=== PATIENT | female | born 1995 | race Caucasian/White ===

== ENCOUNTER 2017-09-22 00:49 | Emergency (ER) | payer BC ==
[~2017-09-22] VITALS: Ht 160 cm; Wt 68.4 kg
[2017-09-22 00:54] VITALS: TEMP 37.5; Ht 160 cm; Wt 68.4 kg
[2017-09-22] MEDS ORDERED: ALUMINUM/MAGNESIUM SUSP 30 ML UDC PO STA (01:09)
[2017-09-22] MEDS ORDERED: LIDOCAINE HCL 2% VISC SOLN 20 ML UDC PO STA (01:09)
[2017-09-22 01:39] LABS: BASO % 0.3 %; BASO ABS # 0.03 K/uL (0-0.2); EOS % 0.2 %; EOS ABS # 0.02 K/uL (0-0.5); HEMATOCRIT 37.5 % (37-47); HEMOGLOBIN 12.4 g/dL (12.0-16.0); IG# 0.02 K/uL (0.00-0.02); LYMPH % 17.7 %; LYMPH ABS # 1.76 K/uL (1.2-3.4); MEAN CELL VOLUME 90.4 fL (80-100); MEAN CORPUSCULAR HEMOGLOBIN 29.9 pg (25-34); MEAN CORPUSCULAR HGB CONC 33.1 g/dl (32-36); MEAN PLATELET VOLUME 10.5 fL (7.4-10.4); MONO % 5.3 %; MONO ABS # 0.53 K/uL (0.11-0.59); NEUT % 76.3 %; NEUT ABS # 7.56 K/uL (1.4-6.5); PLATELET COUNT 308 K/uL (130-400); RED CELL DISTRIBUTION WIDTH SD 43.1 fL (36.4-46.3); WHITE BLOOD COUNT 9.92 K/uL (4.8-10.8)
[2017-09-22 01:59] LABS: ALBUMIN 3.8 gm/dl (3.4-5.0); ALT/SGPT 18 U/L (12-78); AST/SGOT 11 U/L (15-37); BLOOD UREA NITROGEN 8 mg/dl (7-18); CALCIUM 9.5 mg/dl (8.5-10.1); CARBON DIOXIDE 27 mmol/L (21-32); CREATININE 0.76 mg/dl (0.60-1.20); GLUCOSE 111 mg/dl (70-99); LIPASE 154 U/L (73-393); POTASSIUM 3.5 mmol/L (3.5-5.1); SODIUM 136 mmol/L (136-145)
[2017-09-22 02:02] LABS: ALKALINE PHOSPHATASE 47 U/L (45-117); TOTAL PROTEIN 8.3 gm/dl (6.4-8.2)
[2017-09-22] MEDS ORDERED: PANTOprazole SOD 40 MG TAB PO STA (02:50)
--- NOTE | 2017-09-22 02:50 | EMERGENCY ROOM VISIT NOTE ---
History First contact with patient: 00:59 Chief Complaint: ABDOMINAL PAIN Stated Complaint: STOMACH PAINS,BELCHING,VOMITING Nursing Triage Summary: pt c/o abd pain that increased tonight and she became nasueated and then vomited. History of Present Illness The patient is a 22 year old female who presents to the Emergency Room with complaints of epigastric discomfort for the past 3 weeks that comes and goes in severity with nausea. Patient saw her family care doctor back home and was started on Prilosec 20 mg. This has not helped much. She describes the pain as discomfort, 5 out of 10. Nothing makes it better or worse. Patient denies chest pain, dyspnea, fever, chills, back pain, urinary symptoms. She does not drink alcohol. No food seems to change her symptoms. Review of Systems See HPI for pertinent positives & negatives. A total of 10 systems reviewed and were otherwise negative. Past Medical/Surgical History Iron deficiency anemia, wisdom teeth extraction Social History Smoking Status: Never Smoker Smokeless Tobacco Use: No Alcohol Use: none Drug Use: none Marital Status: single Housing Status: lives with roommate Occupation Status: [employer] student Physical Exam Vital Signs Date Time Temp Pulse Resp B/P (MAP) Pulse Ox O2 Delivery O2 Flow Rate FiO2 09/22/17 00:54 37.5 114 18 120/75 99 Room Air Physical Exam VITALS: Vitals are noted on the nurse's note and reviewed by myself. Vital signs stable. GENERAL: Pleasant female, in no acute distress, nondiaphoretic, well-developed well-nourished. SKIN: The skin was without rashes, erythema, edema, or bruising. There is no tenting of the skin. Capillary reflex less than 2 seconds. HEAD: Normocephalic atraumatic. EARS: External auditory canals clear, tympanic membranes pearly [place] without erythema or effusion bilaterally. EYES: Pupils equal round and reactive to light and accommodation. Conjunctivae without injection, sclerae without icterus. Extraocular movements intact. NOSE: Patent, turbinates without inflammation or discharge. MOUTH: Mucous membranes moist. . Pharynx without erythema or exudate. Uvula midline. Airway patent. Tongue does not deviate. NECK: Supple without nuchal rigidity. No lymphadenopathy. No thyromegaly. Cervical spine is nontender. No JVD. HEART: Regular rate and rhythm without murmurs gallops or rubs. LUNGS: Clear to auscultation bilaterally without wheezes, rales or rhonchi. No dullness to percussion. No retractions or accessory muscle use. ABDOMEN: Positive bowel sounds x 4. Normal tympanic percussion. Soft, tender to palpation epigastric region, no CVA tenderness, without masses or organomegaly. Mcclure sign negative. No guarding or rebound tenderness. MUSCULOSKELETAL: No muscle atrophy, erythema, or edema noted. NEURO: Patient was alert and oriented to person place and time. Normal sensation to light and sharp touch. No focal neurological deficits. Medical Decision & Procedures Laboratory Results 09/22/17 01:20 Red Blood Count 4.15, Mean Corpuscular Volume 90.4, Mean Corpuscular Hemoglobin 29.9, Mean Corpuscular Hemoglobin Concent 33.1, Mean Platelet Volume 10.5, Neutrophils (%) (Auto) 76.3, Lymphocytes (%) (Auto) 17.7, Monocytes (%) (Auto) 5.3, Eosinophils (%) (Auto) 0.2, Basophils (%) (Auto) 0.3, Neutrophils # (Auto) 7.56, Lymphocytes # (Auto) 1.76, Monocytes # (Auto) 0.53, Eosinophils # (Auto) 0.02, Basophils # (Auto) 0.03 09/22/17 01:20 Test 09/22/17 00:00 09/22/17 01:20 Urine Color YELLOW Urine Appearance CLOUDY (CLEAR) Urine pH 6.0 (4.5-7.5) Urine Specific [place] 1.025 (1.000-1.030) Urine Protein NEG (NEG) Urine Glucose (UA) NEG (NEG) Urine Ketones TRACE (NEG) Urine Occult Blood NEG (NEG) Urine Nitrite NEG (NEG) Urine Bilirubin NEG (NEG) Urine Urobilinogen NEG (NEG) Urine Leukocyte Esterase TRACE (NEG) Urine WBC (Auto) >30 /hpf (0-5) Urine RBC (Auto) 0-4 /hpf (0-4) Urine Hyaline Casts (Auto) 1-5 /lpf (0-5) Urine Epithelial Cells (Auto) >30 /lpf (0-5) Urine Bacteria (Auto) 3+ (NEG) Urine Pathogenic Casts /lpf (0) White Blood Count 9.92 K/uL (4.8-10.8) Red Blood Count 4.15 M/uL (4.2-5.4) Hemoglobin 12.4 g/dL (12.0-16.0) Hematocrit 37.5 % (37-47) Mean Corpuscular Volume 90.4 fL (80-100) Mean Corpuscular Hemoglobin 29.9 pg (25-34) Mean Corpuscular Hemoglobin Concent 33.1 g/dl (32-36) Platelet Count 308 K/uL (130-400) Mean Platelet Volume 10.5 fL (7.4-10.4) Neutrophils (%) (Auto) 76.3 % Lymphocytes (%) (Auto) 17.7 % Monocytes (%) (Auto) 5.3 % Eosinophils (%) (Auto) 0.2 % Basophils (%) (Auto) 0.3 % Neutrophils # (Auto) 7.56 K/uL (1.4-6.5) Lymphocytes # (Auto) 1.76 K/uL (1.2-3.4) Monocytes # (Auto) 0.53 K/uL (0.11-0.59) Eosinophils # (Auto) 0.02 K/uL (0-0.5) Basophils # (Auto) 0.03 K/uL (0-0.2) RDW Standard Deviation 43.1 fL (36.4-46.3) RDW Coefficient of Variation 13.0 % (11.5-14.5) Immature Granulocyte % (Auto) 0.2 % Immature Granulocyte # (Auto) 0.02 K/uL (0.00-0.02) Anion Gap 8.0 mmol/L (3-11) Est Creatinine Clear Calc Drug Dose 109.6 ml/min Estimated GFR () 130.9 Estimated GFR (Non- 112.9 BUN/Creatinine Ratio 10.9 (10-20) Calcium Level 9.5 mg/dl (8.5-10.1) Total Bilirubin 0.3 mg/dl (0.2-1) Direct Bilirubin < 0.1 mg/dl (0-0.2) Aspartate Amino Transf (AST/SGOT) 11 U/L (15-37) Alanine Aminotransferase (ALT/SGPT) 18 U/L (12-78) Alkaline Phosphatase 47 U/L (45-117) Total Protein 8.3 gm/dl (6.4-8.2) Albumin 3.8 gm/dl (3.4-5.0) Lipase 154 U/L (73-393) Human Chorionic Gonadotropin, Qual NEG (NEG) Medications Administered Medications (Trade) Dose Ordered Sig/Melvin Route Start Time Stop Time Status Last Admin Dose Admin Lidocaine HCl (Viscous Lidocaine 2% Soln) 10 ml NOW STAT PO 09/22/17 01:09 09/22/17 01:11 DC 09/22/17 01:13 10 ML Al Hydroxide/Mg Hydroxide (Maalox Susp) 30 ml NOW STAT PO 09/22/17 01:09 09/22/17 01:11 DC 09/22/17 01:13 30 ML ED Course Prior records/ancillary studies reviewed. Triage Nursing notes reviewed. Additional history obtained from friends. The patient's history was concerning for abdominal pain. Differential diagnosis: Etiologies such as appendicitis, diverticulitis, PUD, biliary pathology, UTI, pancreatitis, obstruction, mesenteric ischemia, aortic pathology, infections, inflammatory bowel disease, renal colic, as well as others were entertained. Physical examination findings: As above. ER treatment provided: GI cocktail On reassessment the patient felt better. Diagnostics interpreted by me: The labs revealed neg hcg. Urinalysis seems consistent with contamination No leukocytosis. Stable H&H Imaging studies: US RUQ: No sonographic evidence of cholelithiasis or acute cholecystitis. No biliary dilatation. No hydronephrosis of the right kidney. Echogenic liver parenchyma suggesting steatosis. Radiologist: Mackenzie Elizondo M.D. Exam and history seem consistent with epigastric discomfort that most likely is is from gastritis. Patient was advised to increase her Prilosec to 40 mg a day and to follow GI for her ongoing symptoms. She is advised to eat small meals throughout the day and to take Maalox or Zantac for breakthrough symptoms. She is advised to return to the ER immediately for severe pain, fevers, vomiting, black or blood in her stool, worsening signs or symptoms or as needed. Patient did not have acute abdomen on exam. She had no blood or black in her stool. She was well-appearing. She felt better after being medicated as above.By the evaluation outlined above emergent etiologies such as appendicitis, diverticulitis, PUD, biliary pathology, UTI, pancreatitis, obstruction, mesenteric ischemia, aortic pathology, infections, inflammatory bowel disease, renal colic, as well as others were deemed relatively unlikely. The pt informed about the findings as listed above. All questions were answered and pleased with the treatment. Return instructions were outlined and the patient was discharged in stable condition. Outpatient prescription management: Protonix 40 mg Referral: The patient was referred to health services and/or GI for follow-up in 2 to 3 days for a recheck of the current condition. Case reviewed with my attending Medical Decision As above Medication Reconcilliation Current Medication List: was personally reviewed by me Blood Pressure Screening Patient's blood pressure: Normal blood pressure Impression Primary Impression: Epigastric abdominal pain Departure Information Dispostion Home / Self-Care Condition GOOD Referrals [facility] (PCP) Patient Instructions My [facility] Additional Instructions Protonix 40 m tablet daily for next 2 weeks. Take this on an empty stomach. Try Maalox or Zantac for breakthrough symptoms for reflux. Avoid large meals. Avoid acidic foods. Rest and drink plenty of fluids as tolerated. Continue current medications. Avoid strenuous activities and anything that worsens your pain. Resume normal activities once your symptoms resolve. Return to the ER immediately for worsening or persistent chest pain, abdominal pain, black or blood in your stools, vomiting, fevers, chest pains, difficulty breathing, worsening of your condition, or as needed. Follow up with your primary physician or GI in 2-3 days for a recheck of your current condition.
[2017-09-22] MEDS ORDERED: PANT40TA PO (02:51)
[2017-09-22 03:17] VITALS: BP 110/72; PULSE 97; O2SAT 98
--- NOTE | 2017-09-22 07:12 | DIAGNOSTIC IMAGING REPORT ---
ABDOMINAL ULTRASOUND, RIGHT UPPER QUADRANT HISTORY: Epigastric pain.. COMPARISON: None. FINDINGS: Pancreas: The pancreas demonstrates a normal echotexture. Liver: Unremarkable. Gallbladder: No gallbladder wall thickening. No gallstones. CBD: 4 mm. Right kidney: No hydronephrosis. IMPRESSION: No significant abnormality identified within the right upper quadrant. Electronically signed by: Issa Goyal M.D. 09/22/2017 7:11 AM Dictated Date/Time: 09/22/2017 7:10 AM
== END 2017-09-22 03:28 | disposition home or self-care (01) ==
LOC: C.EDB 00:50
DX: R10.13 Epigastric pain (principal); R11.0 Nausea

== ENCOUNTER → 2017-10-21 | Outpatient (CLI) | payer BC ==
[~2017-10-21] MED LIST: SINCALIDE IV ONE; SODIUM CHLORIDE 0.9% IV ONE
--- NOTE | 2017-10-21 13:31 | DIAGNOSTIC IMAGING REPORT ---
NUCLEAR MEDICINE HEPATOBILIARY SCAN WITH EJECTION FRACTION HISTORY: VOMITING, generalized ABDOMINAL PAIN , NAUSEA COMPARISON: Abdominal ultrasound 09/22/2017. TECHNIQUE: Immediately following the intravenous administration of 5.5 mCi Tc-99m Choletec, dynamic anterior abdominal imaging pre/post 1.3 mcg of Kinevac was performed. FINDINGS: Uniform hepatic tracer accumulation is shown. Prompt intrahepatic biliary excretion is seen. The gallbladder, common bile duct, and small bowel are all visualized by 40 minutes. This appearance represents the normal sequence of biliary excretion. The gall bladder ejection fraction following administration of Kinevac was 99% (normal >35%). IMPRESSION: 1. No evidence for cystic duct obstruction. 2. Gallbladder ejection fraction calculated to be 99 %. Electronically signed by: Issa Goyal M.D. 10/21/2017 1:30 PM Dictated Date/Time: 10/21/2017 1:29 PM
== END | disposition home or self-care (01) ==
LOC: C.NUCL 10:09
PROVIDERS: ATTEND Internal Medicine Gastroenterology
DX: R11.2 Nausea with vomiting, unspecified (principal); R10.9 Unspecified abdominal pain

== ENCOUNTER → 2017-10-29 | Outpatient (CLI) | payer BC | END | disposition home or self-care (01) | LOC: C.LABSPEC 13:15 | PROVIDERS: ATTEND Physician Assistant | DX: Z01.419 Encounter for gynecological examination (general) (routine) without abnormal findings (principal) ==